=== PATIENT | female | born 1985 | race Caucasian/White ===

== ENCOUNTER 2021-04-17 22:05 | Emergency (ER) | payer OTHER ==
[2021-04-17 22:16] VITALS: BP 129/84; PULSE 104; TEMP 98.1; BMI 35.7
== END 2021-04-17 23:40 | disposition home or self-care (01) ==
LOC: JER 22:05
DX: R22.0 Localized swelling, mass and lump, head (principal)
CPT/HCPCS: 99283-25

== ENCOUNTER 2021-09-23 10:15 | Emergency (ER) | payer OTHER ==
[2021-09-23 10:25] VITALS: BMI 34.4
[2021-09-23 13:03] LABS: BASO % 0.6 % (0-2.0); EOS % 1.5 % (0-4.5); HEMATOCRIT 42.6 % (32.4-45.2); HEMOGLOBIN 14.4 GM/dL (10.7-15.3); LYMPH % 19.6 % (8-40); MCH 30.2 pg (25.7-33.7); MCHC 33.8 g/dl (32.0-36.0); MEAN CELL VOLUME 89.6 fl (80-96); MEAN PLT VOLUME 9.6 fl (7.5-11.1); NEUT % 72.3 % (42.8-82.8); PLATELET COUNT 251 10^3/uL (134-434); RBC 4.75 M/mm3 (3.60-5.2); RDW 12.5 % (11.6-15.6); WHITE BLOOD COUNT 10.5 K/mm3 (4.0-10.0)
[2021-09-23 13:04] VITALS: TEMP 98.4
[2021-09-23] MEDS ORDERED: ASPIRIN 81 MG CHEWABLE TABLETS ONE (13:23)
[2021-09-23] MEDS: ASPIRIN COATED 81 MG TABLET.EC PO SCH ×2 (13:27→13:33)
[2021-09-23 13:31] LABS: CHLORIDE 109 mmol/L (98-107); SODIUM 139 mmol/L (136-145)
[2021-09-23] MEDS ORDERED: ASPIRIN 81 MG CHEWABLE TABLETS PO ONE (13:32)
[2021-09-23 13:33] LABS: CALCIUM 9.1 mg/dL (8.5-10.1)
[2021-09-23 13:34] LABS: ALBUMIN 3.8 g/dl (3.4-5.0); ANION GAP 8 MMOL/L (8-16); CO2 22 mmol/L (21-32); GLUCOSE,RANDOM 92 mg/dL (74-106)
[2021-09-23 13:37] LABS: CREATININE 0.6 mg/dL (0.55-1.3); SGOT/AST 13 U/L (15-37); SGPT/ALT 54 U/L (13-61)
[2021-09-23 13:38] LABS: BILIRUBIN,TOTAL 0.4 mg/dL (0.2-1); TOT PROT 7.6 g/dl (6.4-8.2)
[2021-09-23 13:40] LABS: ALK PHOS 71 U/L (45-117)
[2021-09-23 13:42] LABS: N-TERMINAL BNP 42.4 pg/ml (5-125)
[2021-09-23] MEDS ORDERED: amLODIPine BESYLATE 10 MG TABLET (FP) PO ONE (13:45)
[2021-09-23 16:30] VITALS: BP 152/89; PULSE 72
== END 2021-09-23 16:35 | disposition home or self-care (01) ==
LOC: JER 10:15
DX: R07.89 Other chest pain (principal)
CPT/HCPCS: 36415; 71046-TC-FY; 80053; 82550; 83880; 84484; 85025; 93005; 93010; 99285-25